=== PATIENT | female | born 1945 | race Caucasian/White ===

== ENCOUNTER → 2024-08-25 | Outpatient (CLI) | payer MEDICARE ==
--- NOTE | 2024-08-25 11:13 | MR ---
EXAMINATION TYPE: MR knee LT wo con DATE OF EXAM: 08/25/2024 COMPARISON: Outside left knee x-ray August 16, 2024 HISTORY: Left knee pain and swelling since June 13. TECHNIQUE: Multiplanar, multisequence images of the knee is performed without IV contrast. FINDINGS: MEDIAL MENISCUS: Anterior and posterior horns are intact without tear. LATERAL MENISCUS: Lateral extrusion lateral meniscus with abnormal signal through the anterior horn a nd central body extending to articular surface seen best on coronal images. CRUCIATE LIGAMENTS: The anterior and posterior cruciate ligaments are intact. Some intermediate signa l and fraying of fibers of the anterior cruciate ligament. COLLATERAL LIGAMENTS: The medial collateral ligament and lateral collateral ligament complex are inta ct. Mild fluid signal surrounds the medial collateral ligament. EXTENSOR MECHANISM: Visualized quadriceps and patellar tendons are intact. EFFUSION: Moderate to borderline large size suprapatellar joint effusion. POPLITEAL CYST: Significant ill-defined fluid in the popliteal fossa inferiorly. TRICOMPARTMENT SPACES: Moderate narrowing patellofemoral compartment with mild spurring. Mild to mode rate spurring and narrowing medial and lateral tibiofemoral compartments. CARTILAGE: Chondromalacia patella with cartilaginous loss is greatest along the medial aspect of the posterior patellar pole. BONE MARROW SIGNAL: Heterogeneous increased T2 signal through the posterior aspect of the distal late ral femoral condyle. This measures at least 3.5 x 2.9 cm coronal image 23 OTHER: No additional significant abnormality is appreciated. IMPRESSION: 1. Abnormal bone marrow edema involving the posterior portion of the distal lateral femoral condyle. 2. Full-thickness tear through the central body into the anterior horn of the lateral meniscus. 3. Sprain injuries of the ACL and MCL. 4. Fairly moderate tricompartment degenerative changes are present as detailed above. 5. Moderate to large sized to joint effusion. 6. Large ruptured popliteal cyst. [facility], , 08/25/2024 11:11 AM
== END | disposition home or self-care (01) ==
LOC: RADMRIMAIN 09:40
PROVIDERS: ATTEND Orthopaedic Surgery
DX: M17.12 Unilateral primary osteoarthritis, left knee (principal); S83.412A Sprain of medial collateral ligament of left knee, initial encounter; M71.22 Synovial cyst of popliteal space [Baker], left knee